=== PATIENT | male | born 1950 | race Caucasian/White ===

== ENCOUNTER 2019-01-02 07:23 | Day surgery (SDC) | payer OTHER ==
[~2019-01-02] VITALS: Ht 175.3 cm; Wt 81.6 kg
[~2019-01-02 07:23] MED LIST: LISI-552 PO
[2019-01-02] MEDS ORDERED: LACTATED RINGERS 1,000 ML IV ONE (07:34)
[2019-01-02] MEDS ORDERED: LACTATED RINGERS 1,000 ML IV STA (07:37)
[2019-01-02 08:04] VITALS: BP 121/95
[2019-01-02 08:20] VITALS: BP 96/65
[2019-01-02] MEDS ORDERED: PROPOFOL INJECTION 50 ML IV ONE (08:21)
[2019-01-02 09:00] VITALS: BP 98/70
--- NOTE | 2019-01-02 09:00 | Discharge Inst-Simple/Standard ---
Discharge Inst-Standard Patient Instructions/Follow Up Plan of Care/Instructions/FU: 2 weeks Bing Activity as Tolerated: Yes Discharge Diet: Regular Diet (high fiber) MARINA TALAMANTES DO Jan 02, 2019 08:59
--- NOTE | 2019-01-02 09:01 | Progress Note-Post Operative ---
Post-Operative Progess Note Surgeon (s)/Hat And Cap Parts Cutter Hand (s) Surgeon MARINA TALAMANTES DO Hat And Cap Parts Cutter Hand: na Pre-Operative Diagnosis screening colonoscopy Post-Operative Diagnosis cecal polyp, diverticulosis, int hemorrhoids Procedure & Operative Findings Date of Procedure 01/02/19 Procedure Performed/Findings colonoscopy c snare polypectomy Anesthesia Type per coconut cooker Estimated Blood Loss Estimated blood loss (mL): none Specimens/Packing Specimens Removed cecal polyp MARINA TALAMANTES DO Jan 02, 2019 09:01
[2019-01-02 09:30] VITALS: BP 114/83
[2019-01-02 09:45] VITALS: BP 114/83
--- NOTE | 2019-01-02 11:15 | OPERATIVE REPORT ---
DATE OF SERVICE: 01/02/2019 PREOPERATIVE DIAGNOSIS: Screening colonoscopy. POSTOPERATIVE DIAGNOSIS: Cecal polyp, diverticulosis and internal hemorrhoids. PROCEDURE: Colonoscopy with snare polypectomy of cecal polyp. SURGEON: Marina Smart DO ANESTHESIA: Per SENIOR DATA QUALITY ANALYST. ESTIMATED BLOOD LOSS: None. COMPLICATIONS: None. INDICATIONS: The patient is a 68-year-old male due for screening colonoscopy. He understands risks and benefits of procedure and wished to proceed with procedure. Consent was signed in the chart. DESCRIPTION OF PROCEDURE: The patient was taken to the endoscopy suite, placed in left lateral recumbent position. Timeout was performed. Digital rectal exam was performed. There are some small internal hemorrhoids. Scope was inserted into the rectum, advanced all the way to the cecum with minimal difficulty. Prep was adequate. Scope was then slowly retracted back in the cecum. There is an approximately 1 cm polyp present, which snare polypectomy was performed. This was obtained for specimen. Scope was begun to be slowly withdrawn. There were no other polyps, masses or ulcerations within the remainder of the cecum, ascending, transverse, descending and sigmoid colon. Throughout the colon, there was a minimal amount of diverticulosis present. Once in the rectum, scope was retroflexed noting some internal hemorrhoids. Scope was returned to its normal position, slowly withdrawn until completely removed. The patient tolerated procedure well without any complications, taken to recovery room in stable condition. RECOMMENDATIONS: The patient was recommended repeat colonoscopy in one year due to the size of the polyp and make sure it was eradicated. The patient will follow up in 2 weeks to discuss pathology results. Job ID: [id number] DocumentID: [id number] Dictated Date: 01/02/2019 08:58:44 Public Relations Associate Date: 01/02/2019 11:14:17 Dictated By: MARINA SMART DO
== END 2019-01-02 09:45 | disposition home or self-care (01) ==
LOC: ENDO 07:23
PROVIDERS: ATTEND Surgery
DX: Z12.11 Encounter for screening for malignant neoplasm of colon (principal); D12.0 Benign neoplasm of cecum; K57.30 Diverticulosis of large intestine without perforation or abscess without bleeding; K64.8 Other hemorrhoids; I10 Essential (primary) hypertension; J44.9 Chronic obstructive pulmonary disease, unspecified; Z87.891 Personal history of nicotine dependence; Z83.6 Family history of other diseases of the respiratory system

== ENCOUNTER → 2019-11-27 | Outpatient (CLI) | payer OTHER ==
--- NOTE | 2019-11-27 10:23 | Diagnostic Imaging Report ---
CT Lung Screening INDICATION:40 pack year smoking history, cessation 4 years ago presents for baseline low-dose CT screening. TECHNIQUE: Noncontrast, low-dose CT imaging performed according to the lung cancer screening protocol. Auto Exposure Controls were utilize during the CT exam to meet ALARA standards for radiation dose reduction. COMPARISON:None FINDINGS:There is curvilinear scarring or subsegmental atelectasis in the subpleural left upper lobe with a discoid morphology. No suspicious pulmonary nodule or dominant lung mass. No findings of thoracic adenopathy no features suggestive of acute pneumonia. No chest effusion. The aorta is nonaneurysmal. There are coronary arterial atherosclerotic vascular calcifications. The visualized upper abdomen unremarkable IMPRESSION: 1: No suspicious mass. 2. Discoid subpleural scarring versus partial atelectasis left upper lobe. 3. Nonaneurysmal atherosclerosis with coronary arterial atherosclerotic calcifications. Low-dose CT screening followup in one year's time recommended. LUNG-RADS CATEGORY:Lung RADS category 2 MODIFIER: OTHER SIGNIFICANT FINDINGS: Dictated by: Dictated on workstation # [id number]
== END ==
LOC: RAD 08:58
PROVIDERS: ATTEND Family Medicine
DX: Z12.2 Encounter for screening for malignant neoplasm of respiratory organs (principal); I25.10 Atherosclerotic heart disease of native coronary artery without angina pectoris

== ENCOUNTER 2021-04-14 05:36 | Outpatient (CLI) | payer OTHER ==
[~2021-04-14] VITALS: Ht 175.3 cm; Wt 87.3 kg
[~2021-04-14 05:36] MED LIST changes: -LISI-552 PO; +LISI20TA26 PO
== END 2021-04-16 08:36 | disposition home or self-care (01) ==
LOC: PREOP 05:36
PROVIDERS: ATTEND Surgery
DX: Z01.818 Encounter for other preprocedural examination (principal)

== ENCOUNTER 2021-05-26 07:04 | Day surgery (SDC) | payer OTHER ==
[~2021-05-26] VITALS: Ht 175.3 cm; Wt 87.3 kg
[2021-05-26] MEDS ORDERED: LACTATED RINGERS 1,000 ML IV ONE (07:08)
[2021-05-26] MEDS ORDERED: LACTATED RINGERS 1,000 ML IV STA (07:10)
[2021-05-26] MEDS ORDERED: MIDAZOLAM 2 MG/2 ML (VERSED) VIAL ONE (07:20)
[2021-05-26] MEDS ORDERED: PROPOFOL INJECTION 50 ML IV ONE (07:20)
[2021-05-26 07:22] VITALS: BP 140/110
[2021-05-26] MEDS ORDERED: meTOprolol 5 MG/5 ML (LOPRESSOR) VIAL ONE (08:06)
[2021-05-26 08:20] VITALS: BP 121/82
[2021-05-26 08:25] VITALS: BP 120/81
--- NOTE | 2021-05-26 08:29 | Discharge Inst-Simple/Standard ---
Discharge Inst-Standard Patient Instructions/Follow Up Plan of Care/Instructions/FU: 2 weeks Bing Activity as Tolerated: Yes Discharge Diet: Regular Diet (high fiber) MARINA TALAMANETS DO May 26, 2021 08:29
[2021-05-26 08:30] VITALS: BP 123/86
--- NOTE | 2021-05-26 08:31 | Progress Note-Post Operative ---
Post-Operative Progess Note Surgeon (s)/Restaurant Hospitality Manager (s) Surgeon MARINA TALAMANTES DO Restaurant Hospitality Manager: na Pre-Operative Diagnosis screening colonoscopy Post-Operative Diagnosis diverticulosis, colon polyp cecum, colitis, internal hermorrhoid Procedure & Operative Findings Date of Procedure 05/26/21 Procedure Performed/Findings colonoscopy c hot bx polypectomy x 1 and cold biopsy sigmoid Anesthesia Type per interactive producer Estimated Blood Loss Estimated blood loss (mL): none Specimens/Packing Specimens Removed cecum, sigmoid MARINA TALAMANTES DO May 26, 2021 08:31
[2021-05-26 09:53] VITALS: BP 125/82
--- NOTE | 2021-05-26 13:18 | OPERATIVE REPORT ---
DATE OF SERVICE: 05/26/2021 PREOPERATIVE DIAGNOSES: Screening colonoscopy and history of polyps. POSTOPERATIVE DIAGNOSES: Diverticulosis, colon polyp in the cecum, colitis, and internal hemorrhoid. PROCEDURES PERFORMED: Colonoscopy with hot biopsy polypectomy x1 and cold biopsy of the sigmoid. SURGEON: Marina Smart DO. ANESTHESIA: Per RESEARCH PROGRAM INTERNSHIP. ESTIMATED BLOOD LOSS: None. COMPLICATIONS: None. SPECIMENS: Cecum and sigmoid. INDICATIONS FOR PROCEDURE: The patient is a 70-year-old male with history of polyps. He understands the risks and benefits of the procedure and wishes to proceed. Consent was signed in the chart. DESCRIPTION OF PROCEDURE: The patient was taken to the endoscopy suite and placed in a left lateral recumbent position. A timeout was performed. Digital rectal exam was performed. Some slight scar tissue posteriorly and large internal hemorrhoids slightly prolapsed. Scope was inserted in the rectum and advanced all the way to the cecum with minimal difficulty. Prep was adequate. Scope was then slowly retracted back. Cecal polyp was present, which hot biopsy polypectomy was performed. Scope was then continuously and slowly retracted back. No polyps, masses or ulcerations within the ascending, transverse, descending, and sigmoid colon. In the sigmoid colon, there were slight erythematous changes consistent with some prep colitis. Cold biopsy was obtained. Diverticulosis throughout the colon. Scope was then retracted back into the rectum, where it was also retroflexed noting no other pathology. The scope was returned to its normal position, slowly withdrawn until completely removed. The patient tolerated the procedure well without any complications and taken to the recovery room in a stable condition. RECOMMENDATIONS: The patient needs a repeat colonoscopy in five years. Any issues before that will be seen at that time. The patient with a large prolapsed internal hemorrhoid. We would recommend excision and also do an exam under anesthesia just to evaluate the firmness that felt like scar tissue. The patient also was in atrial fibrillation giving a 12-lead EKG and we will discuss with cardiology. Job ID: [id number] DocumentID: [id number] Dictated Date: 05/26/2021 08:34:07 Beveler Date: 05/26/2021 13:17:22 Dictated By: MARINA SMART DO
--- NOTE | 2021-05-26 13:21 | Anesthesia-General Post-Op ---
MAC Patient Condition Mental Status/LOC: Same as Preop Cardiovascular: Satisfactory Nausea/Vomiting: Absent Respiratory: Satisfactory Pain: Controlled Complications: Absent Post Op Complications Complications None Follow Up Care/Instructions Patient Instructions None needed. Anesthesiology Discharge Order Discharge Order Patient is doing well, no complaints, stable vital signs, no apparent adverse anesthesia problems. No complications reported per nursing. DORCAS YANCEY CRNA May 26, 2021 13:21
== END 2021-05-26 09:57 | disposition home or self-care (01) ==
LOC: ENDO 07:04
PROVIDERS: ATTEND Surgery
DX: Z12.11 Encounter for screening for malignant neoplasm of colon (principal); D12.0 Benign neoplasm of cecum; D12.5 Benign neoplasm of sigmoid colon; K57.30 Diverticulosis of large intestine without perforation or abscess without bleeding; K52.9 Noninfective gastroenteritis and colitis, unspecified; K64.8 Other hemorrhoids; I48.91 Unspecified atrial fibrillation; T46.4X6A Underdosing of angiotensin-converting-enzyme inhibitors, initial encounter
CPT/HCPCS: 88305; 93005

== ENCOUNTER → 2021-05-29 | Outpatient (CLI) | payer OTHER | LOC: LAB 14:09 | PROVIDERS: ATTEND Internal Medicine Cardiovascular Disease | DX: I48.19 Other persistent atrial fibrillation (principal) | CPT/HCPCS: 36415; 85652 ==

== ENCOUNTER → 2021-06-02 | Outpatient (CLI) | payer OTHER, MEDICARE ==
[~2021-06-02] MED LIST changes: +REGADENOSON 0.4 MG/5 ML SYR (LEXISCAN) IV ONE
[2021-06-02] MEDS: CATHETER FLUSH 10 ML SYR IV PRN ×2 (07:29→09:06)
[2021-06-02 09:00] VITALS: BP 145/92
== END ==
LOC: CARD 07:30
PROVIDERS: ATTEND Internal Medicine Cardiovascular Disease
DX: I48.19 Other persistent atrial fibrillation (principal)
CPT/HCPCS: 78452; 93017; A9502

== ENCOUNTER → 2021-06-09 | Outpatient (CLI) | payer OTHER ==
[~2021-06-09] MED LIST changes: -REGADENOSON 0.4 MG/5 ML SYR (LEXISCAN) IV ONE
== END ==
LOC: CARD 09:30
PROVIDERS: ATTEND Internal Medicine Cardiovascular Disease
DX: I48.19 Other persistent atrial fibrillation (principal); I51.7 Cardiomegaly
CPT/HCPCS: 93225; 93226; 93306